=== PATIENT | female | born 1940 | race Caucasian/White ===

== ENCOUNTER 2017-09-30 08:53 | Outpatient (CLI) | payer MEDICARE, BC | END 2017-09-30 08:54 | disposition home or self-care (01) | LOC: BICMAMMO 08:53 | PROVIDERS: ATTEND Internal Medicine | DX: Z12.31 Encounter for screening mammogram for malignant neoplasm of breast (principal) | CPT/HCPCS: 77063; 77067 ==

== ENCOUNTER 2018-03-17 10:13 | Outpatient (CLI) | payer MEDICARE, BC ==
[2018-03-17] MEDS ORDERED: ISOVUE-370 76%-LOCM 1 ML ONE (10:50)
--- NOTE | 2018-03-17 13:23 | CT ---
CT CHEST WITH IV CONTRAST: History: Lung nodule. Follow. Comparison: Multiple previous exams back to 07-24-07. FINDINGS: Scattered calcified granulomata. The subpleural 0.6 cm noncalcified nodule at the right lateral lung base is stable compared to exams back to 07-24-07. No new nodules. No enlarged lymph nodes are apparent within the mediastinum. IMPRESSION: 10-year stability of the small right lower lobe nodule. No new abnormalities. POS: [facility]
== END 2018-03-17 10:14 | disposition home or self-care (01) ==
LOC: BICCT 10:13
PROVIDERS: ATTEND Internal Medicine Pulmonary Disease
DX: R91.1 Solitary pulmonary nodule (principal)
CPT/HCPCS: 71260; 82565

== ENCOUNTER 2018-07-28 05:16 | Observation (INO) | payer MEDICARE, BC ==
[2018-07-28 05:51] LABS: #Basophils 0.1 thou/uL (0.0-0.2); #Eosinphils 0.3 thou/uL (0.0-0.7); #Lymphocytes 1.9 thou/uL (1.20-3.40); #Monocytes 0.6 thou/uL (0.11-0.59); %Basophils 0.9 % (0.0-1.0); %Eosinophils 4.8 % (0.0-10.0); %Lymphocytes 33.3 % (21.0-51.0); %Monocytes 10.3 % (0.0-10.0); %Neutrophils 50.9 % (42.0-75.0); Hemoglobin 14.9 g/dL (12.0-16.0); Mean Corpuscular HGB CONC 33.2 g/dL (32.0-36.0); Mean Corpuscular Hemoglobin 29.7 pg (27.0-31.0); Mean Corpuscular Volume 89.5 fL (78.0-98.0); Mean Platelet Volume 8.4 fL (7.4-10.4); Platelet Count 198 thou/uL (130-400); Red Blood Cell (RBC) Count 5.01 mill/uL (4.20-5.40); White Blood Cell (WBC) Count 5.8 thou/uL (4.8-10.8)
[2018-07-28 06:22] LABS: ALT (SGPT) 23 U/L (8-55); AST (SGOT) 24 U/L (5-34); Albumin 3.9 g/dL (3.4-4.8); Alkaline Phosphatase 93 U/L (40-150); Anion Gap 11 mmol/L (10-20); BUN (Urea Nitrogen) 19 mg/dL (9.8-20.1); Bilirubin, Total 0.7 mg/dL (0.2-1.2); Calc. Creatinine Clearance 0 mL/min (70-130); Calcium 9.7 mg/dL (7.8-10.44); Carbon Dioxide 28 mmol/L (23-31); Chloride 104 mmol/L (98-107); Estimated GFR-MDRD 64; Globulin 3.3 g/dL (2.4-3.5); Glucose 207 mg/dL (83-110); Potassium 4.1 mmol/L (3.5-5.1); Protein, Total 7.2 g/dL (6.0-8.3); Sodium 139 mmol/L (136-145)
--- NOTE | 2018-07-28 08:00 | RAD ---
PORTABLE CHEST ONE VIEW: Date: 07-28-18 Time: 6:04 a.m. History: Chest pain FINDINGS: Comparison is made with exam of 01-16-17. The heart size is normal. The aorta is tortuous. The lungs are expanded without focal areas of consol idation, pneumothoraces, or pleural effusions. IMPRESSION: No radiographic evidence of acute cardiopulmonary process. POS: OFF
[2018-07-28 09:32] LABS: Troponin I Less than 0.010 ng/mL (< 0.028)
--- NOTE | 2018-07-28 17:48 | HP ---
REASON FOR ADMISSION: Chest pain. HISTORY OF PRESENTING ILLNESS: The patient woke up around 4:30 a.m. with complaint of retrosternal chest pain. This was 4/10 in intensity and lasted only for a few seconds. She checked her blood pressure, it was 199/104. She told her and brought her to the emergency room. Currently, she is chest pain- free. She is wanting to go home. There are no complaints of cough, expectoration, palpitations, PND, or orthopnea. She in fact saw Dr. Turner yesterday for varicose veins and did not have any chest pain or any untoward symptoms. Her last stress test was in 2014 per patient. No complaints of abdominal pain, nausea, or vomiting. Current medications: 1. Levemir 30 to 50 units twice daily. 2. Humalog 2 to 6 units before meals. 3. Levothyroxine 25 mcg p.o. daily. 4. Omeprazole 40 mg p.o. daily. 5. Trulicity 1.5 mg subcu once a week. 6. Quinapril with hydrochlorothiazide 20/25 mg p.o. daily. 7. Pramipexole 0.25 mg p.o. daily. ALLERGIES: ALLERGIC TO CODEINE, LYRICA, AND TRAMADOL. PAST MEDICAL AND SURGICAL HISTORY: History of diabetes mellitus type 2, hypertension, hypothyroidism, varicose veins, restless legs syndrome, hysterectomy, right breast lumpectomy x2, hammertoe removal on the right foot. PERSONAL HISTORY: Does not abuse alcohol or drugs. No current smoking, quit smoking 40 years ago and smoked for 20 years or so in her younger days. FAMILY HISTORY: Mother at the age of 82 years. She has had history of coronary artery disease and diabetes. Father of stroke at the age of 76 years. CODE STATUS: Full. Power of executive candidate developer is her . REVIEW OF SYSTEMS: CONSTITUTIONAL: Negative for weight loss or gain, ability to conduct usual activities. SKIN: Negative for rash, itching. EYES: Negative for double vision, pain. ENT/MOUTH: Negative for nose bleeding, neck stiffness, pain, tenderness. CARDIOVASCULAR: Negative for palpitations, dyspnea on exertion, orthopnea. RESPIRATORY: Negative for shortness of breath, wheezing, cough, hemoptysis, fever or night sweats. GASTROINTESTINAL: Negative for poor appetite, abdominal pain, heartburn, nausea , vomiting, constipation, or diarrhea. GENITOURINARY: Negative for urgency, frequency, dysuria, nocturia. MUSCULOSKELETAL: Negative for pain, swelling. NEUROLOGIC/PSYCHIATRIC: Negative for anxiety, depression. ALLERGY/IMMUNOLOGIC: Negative for skin rash, bleeding tendency. PHYSICAL EXAMINATION: GENERAL: The patient is a 78-year-old female, who is currently not in any acute distress. VITAL SIGNS: Blood pressure 200/90 on arrival, currently 146/80, pulse 76 per minute, respiratory rate 18 per minute, temperature 97.6 degrees Fahrenheit, saturating 95% on room air. NECK: Supple. No elevated JVD. HEENT: Eyes; extraocular muscles intact. Pupils reacting to light. Oral cavity, mucous membranes are moist. No exudates or congestion, CARDIOVASCULAR SYSTEM: S1 and S2 heard. Regular rhythm. RESPIRATORY SYSTEM: Air entry 2+ bilateral. No rales or rhonchi. ABDOMEN: Soft. Bowel sounds heard. No tenderness, rigidity, or guarding. EXTREMITIES: No peripheral edema or calf tenderness. VASCULAR SYSTEM: Peripheral pulses 1+ bilateral. No ischemic ulcerations or gangrene. CENTRAL NERVOUS SYSTEM: No gross focal deficits noted. The patient is alert, awake, and oriented well. PSYCHIATRIC SYSTEM: The patient's mood is euthymic. No hallucinations or delusions. LABORATORY DATA: EKG done shows normal sinus rhythm at 74 beats per minute. Troponin x2 is negative. Albumin is 3.9, BUN 19, creatinine 0.8. Chest x-ray done shows no acute cardiopulmonary abnormality. Electrolytes are stable. White count of 5, H and H 14 and 44, platelet count 198 with 50% neutrophils, MCV is 89. Liver enzymes are within normal limits. CLINICAL IMPRESSION AND PLAN: The patient will be shortly discharged home. She has had followup with Dr. Turner yesterday and has upcoming appointment next week. I have discussed her findings with Dr. Turner, and if the patient gets symptomatic again , she will have outpatient stress test at Dr. Turner office. She has workup lined for her varicose veins. Her hypertension is stable at present. She needs to continue her home medications as before. She is not wanting a stress test at present and wants to go home. The patient has been advised to come to the nearest emergency room if she were to develop chest pain again. She is also advised to check blood pressure and pulse twice daily and record for one week and show to Dr. Turner for changes in her medications if needed. She is otherwise hemodynamically stable and will be shortly discharged from the ER. Please note, this is a same day admit/discharge under observation status. Job ID: [id number] MTDD
--- NOTE | 2018-08-22 16:37 | EKG ---
Test Reason : Blood Pressure : / mmHG Vent. Rate : 074 BPM Atrial Rate : 074 BPM P-R Int : 164 ms QRS Dur : 080 ms QT Int : 388 ms P-R-T Axes : 014 004 031 degrees QTc Int : 430 ms Normal sinus rhythm Normal ECG Confirmed by SHARON KAUFMAN M.D. ([id number]), magazine editor ORLIN STALEY ([id number]) on 08/22/2018 4:36:29 PM Referred By: Confirmed By:SHARON KAUFMAN M.D.
== END 2018-07-28 11:27 | disposition home or self-care (01) ==
LOC: ERS 05:16 → ERHOLD 07:10
PROVIDERS: ADMIT Internal Medicine; ATTEND Internal Medicine
DX: R07.2 Precordial pain (principal); E11.9 Type 2 diabetes mellitus without complications; E03.9 Hypothyroidism, unspecified; G25.81 Restless legs syndrome; I83.90 Asymptomatic varicose veins of unspecified lower extremity; Z87.891 Personal history of nicotine dependence; Z79.4 Long term (current) use of insulin; Z79.899 Other long term (current) drug therapy; Z88.5 Allergy status to narcotic agent
CPT/HCPCS: 36415; 36416; 71045; 80053; 84484; 85025; 93005

== ENCOUNTER 2019-04-28 10:24 | Outpatient (CLI) | payer MEDICARE, BC ==
--- NOTE | 2019-04-28 11:26 | MMO ---
Bilateral MAMMO Bilat Screen [facility]. CLINICAL HISTORY: Patient is 78 years old and is seen for screening. The patient has no family history of breast cancer. The patient has no personal history of cancer. The patient has a history of Ultrasound Guided Core Biopsy in March,, right Excisional Biopsy in March, - benign and right Excisional Biopsy in 1995 - benign. VIEWS: The views performed were: bilateral craniocaudal with tomosynthesis; bilateral mediolateral oblique with tomosynthesis; and left craniocaudal. FILMS COMPARED: The present examination has been compared to prior imaging studies performed at [facility] on 03/04/2013, 06/02/2015, 06/20/2016 and 09/30/2017. This study has been interpreted with the assistance of computer-aided detection. MAMMOGRAM FINDINGS: There are scattered fibroglandular densities. There are no suspicious masses, calcifications or areas of architectural distortion. There are benign appearing calcifications in both breasts. Stable post surgical change in the right breast. There are no suspicious masses, suspicious calcifications, or new areas of architectural distortion. IMPRESSION: THERE IS NO MAMMOGRAPHIC EVIDENCE OF MALIGNANCY. A ROUTINE FOLLOW-UP MAMMOGRAM IN 1 YEAR IS RECOMMENDED. THE RESULTS OF THIS EXAM WERE SENT TO THE PATIENT. ACR BI-RADS Category 2 - Benign finding MAMMOGRAPHY NOTE: 1. A negative mammogram report should not delay a biopsy if a dominant of clinically suspicious mass is present. 2. Approximately 10% to 15% of breast cancers are not detected by mammography. 3. Adenosis and dense breasts may obscure an underlying neoplasm. Reported by: STEPHANI CADENA MD Electonically Signed: [id number]
== END 2019-04-28 10:25 | disposition home or self-care (01) ==
LOC: BICMAMMO 10:24
PROVIDERS: ATTEND Internal Medicine
DX: Z12.31 Encounter for screening mammogram for malignant neoplasm of breast (principal); Z91.89 Other specified personal risk factors, not elsewhere classified
CPT/HCPCS: 77063; 77067

== ENCOUNTER 2019-06-30 07:49 | Outpatient (CLI) | payer MEDICARE, BC ==
--- NOTE | 2019-06-30 08:30 | BD ---
EXAM: Bone densitometry using DEXA HISTORY: 78 yo female. Screening for postmenopausal osteoporosis FINDINGS: L1--bone mineral density 0.828 g/sq cm; T score -1.5 ; Z score 0.8 L2--bone mineral density 0.886 g/sq cm; T score -1.3 ; Z score 1.2 L3--bone mineral density 0.878 g/sq cm; T score -1.9 ; Z score 0.7 L4--bone mineral density 0.892 g/sq cm; T score -1.5 ; Z score 1.1 Total L1-L4--bone mineral density 0.873 g/sq cm; T score -1.6 ; Z score 0.9 Left femoral neck--bone mineral density0.656; T score -1.7 ; Z score 0.4 Total proximal left femur--bone mineral density 0.910; T score -0.3 ; Z score 1.6 The 10 year fracture risk for a major osteoporotic fracture is 12% and for a hip fracture is 2.6%. IMPRESSION: Osteopenia
== END 2019-06-30 07:50 | disposition home or self-care (01) ==
LOC: BICMAMMO 07:49
PROVIDERS: ATTEND Internal Medicine
DX: Z13.820 Encounter for screening for osteoporosis (principal); Z78.0 Asymptomatic menopausal state; M85.80 Other specified disorders of bone density and structure, unspecified site
CPT/HCPCS: 77080

== ENCOUNTER 2020-03-27 12:00 | Emergency (ER) | payer MEDICARE, BC ==
[2020-03-27 13:15] LABS: #Eosinphils 0.2 thou/uL (0.0-0.7); #Lymphocytes 1.7 thou/uL (1.20-3.40); #Monocytes 0.4 thou/uL (0.11-0.59); #Neutrophils 3.3 thou/uL (1.40-6.50); %Basophils 0.6 % (0.0-1.0); %Eosinophils 2.8 % (0.0-10.0); %Lymphocytes 29.7 % (21.0-51.0); %Monocytes 7.8 % (0.0-10.0); Hemoglobin 15.4 g/dL (12.0-16.0); Mean Corpuscular HGB CONC 34.4 g/dL (32.0-36.0); Mean Corpuscular Volume 87.2 fL (78.0-98.0); Mean Platelet Volume 8.3 fL (7.4-10.4); Platelet Count 206 thou/uL (130-400); RBC Distribution Width 12.6 % (11.5-14.5); Red Blood Cell (RBC) Count 5.13 mill/uL (4.20-5.40); White Blood Cell (WBC) Count 5.7 thou/uL (4.8-10.8)
--- NOTE | 2020-03-27 13:20 | CT ---
CT HEAD WITHOUT CONTRAST: Date: 03/27/2020 INDICATION: Headache. FINDINGS: Ventricles have normal size and position. There is no evidence of intracranial mass or hemorrhage. No evidence of infarct or edema. Mild mucosal edema in the ethmoid air cells on the right. Paranasal sinuses otherwise appear clear an d well aerated. The mastoids are clear. IMPRESSION: No acute findings. POS: OFF
[2020-03-27 13:34] LABS: ALT (SGPT) 17 U/L (8-55); AST (SGOT) 17 U/L (5-34); Albumin 4.2 g/dL (3.4-4.8); Alkaline Phosphatase 55 U/L (40-110); Anion Gap 12 mmol/L (10-20); BUN (Urea Nitrogen) 17 mg/dL (9.8-20.1); Bilirubin, Total 0.7 mg/dL (0.2-1.2); CRP (Inflammatory) Less than 0.50 mg/dL (= or < 0.5); Calc. Creatinine Clearance 0 mL/min (70-130); Calcium 9.6 mg/dL (7.8-10.44); Carbon Dioxide 30 mmol/L (23-31); Chloride 103 mmol/L (98-107); Estimated GFR-MDRD 51; Globulin 2.9 g/dL (2.4-3.5); Glucose 129 mg/dL (83-110); Potassium 3.9 mmol/L (3.5-5.1); Protein, Total 7.1 g/dL (6.0-8.3); Sodium 141 mmol/L (136-145)
[2020-03-27] MEDS ORDERED: carBAMazepine 200 MG TAB PO SCH (13:45)
--- NOTE | 2020-03-27 13:45 | CT ---
CT Facial Bones WO Con History: Left-sided face pain Comparison: None. Findings: The mandible is intact. Normal location of the temporomandibular joints. The medial orbital emanuel, lateral orbital emanuel, orbital floors and orbital roofs are intact. Nasal bones are intact. Mild mucosal thickening of the anterior and posterior ethmoids. Mild mucosal thickening in the inferior maxillary sinuses. Sphenoid sinuses are intact and clear along with the mastoids. No left-sided facial mass. The globes are intact. No retrobulbar hematoma. No large periapical erosions of the mandible normal axilla. Impression: No acute abnormality of the face. No fracture. Mild ethmoid or maxillary sinusitis.
--- NOTE | 2020-04-01 13:26 | EKG ---
Test Reason : Blood Pressure : / mmHG Vent. Rate : 067 BPM Atrial Rate : 067 BPM P-R Int : 152 ms QRS Dur : 078 ms QT Int : 396 ms P-R-T Axes : 007 009 024 degrees QTc Int : 418 ms Normal sinus rhythm Normal ECG Confirmed by DC WALL DO ([id number]), slot editor RAYO ALVARENGA ([id number]) on 04/01/2020 1:25:51 PM Referred By: Confirmed By:DC WALL DO
== END 2020-03-27 14:05 | disposition home or self-care (01) ==
LOC: ERS 12:00
DX: G50.0 Trigeminal neuralgia (principal); E11.9 Type 2 diabetes mellitus without complications; I10 Essential (primary) hypertension; E03.9 Hypothyroidism, unspecified; K21.9 Gastro-esophageal reflux disease without esophagitis; Z79.4 Long term (current) use of insulin; Z79.899 Other long term (current) drug therapy
CPT/HCPCS: 36415; 70450; 70486; 80053; 85025; 85652; 86140; 93005

== ENCOUNTER 2020-05-23 12:04 | Outpatient (CLI) | payer MEDICARE, BC ==
--- NOTE | 2020-05-23 13:16 | MMO ---
Bilateral MAMMO Bilat Screen [facility]. CLINICAL HISTORY: Patient is 79 years old and is seen for screening. The patient has no family history of breast cancer. The patient has no personal history of cancer. The patient has a history of Ultrasound Guided Core Biopsy in March,, right Excisional Biopsy in March, - benign and right Excisional Biopsy in 1995 - benign. VIEWS: The views performed were: bilateral craniocaudal with tomosynthesis and bilateral mediolateral oblique with tomosynthesis. FILMS COMPARED: The present examination has been compared to prior imaging studies performed at [facility] on 06/02/2015, 06/20/2016, 09/30/2017 and 04/28/2019. This study has been interpreted with the assistance of computer-aided detection. MAMMOGRAM FINDINGS: There are scattered fibroglandular densities. Finding 1: There are stable benign appearing calcifications seen in both breasts. There are also vascular calcifications. Finding 2: There are stable post operative changes seen in the right breast. There are no suspicious masses, suspicious calcifications, or new areas of architectural distortion. IMPRESSION: THERE IS NO MAMMOGRAPHIC EVIDENCE OF MALIGNANCY. A ROUTINE FOLLOW-UP MAMMOGRAM IN 1 YEAR IS RECOMMENDED. THE RESULTS OF THIS EXAM WERE SENT TO THE PATIENT. ACR BI-RADS Category 2 - Benign finding MAMMOGRAPHY NOTE: 1. A negative mammogram report should not delay a biopsy if a dominant of clinically suspicious mass is present. 2. Approximately 10% to 15% of breast cancers are not detected by mammography. 3. Adenosis and dense breasts may obscure an underlying neoplasm. Reported by: MARA VALDERRAMA MD Electonically Signed: [id number]
== END 2020-05-23 12:05 | disposition home or self-care (01) ==
LOC: BICMAMMO 12:04
PROVIDERS: ATTEND Internal Medicine
DX: Z12.31 Encounter for screening mammogram for malignant neoplasm of breast (principal); Z91.89 Other specified personal risk factors, not elsewhere classified
CPT/HCPCS: 77063; 77067

== ENCOUNTER 2020-10-13 13:33 | Emergency (ER) | payer MEDICARE, BC ==
[2020-10-13] MEDS ORDERED: Morphine 4 MG/ML VIAL ONE (13:57)
[2020-10-13] MEDS ORDERED: traMADol HCl 50 MG TAB ONE (15:30)
[2020-10-13] MEDS ORDERED: Ondansetron ODT 4 MG TAB ONE (15:30)
== END 2020-10-13 15:50 | disposition home or self-care (01) ==
LOC: ERS 13:33
DX: S42.202A Unspecified fracture of upper end of left humerus, initial encounter for closed fracture (principal); E11.9 Type 2 diabetes mellitus without complications; I10 Essential (primary) hypertension; E03.9 Hypothyroidism, unspecified; K21.9 Gastro-esophageal reflux disease without esophagitis; Z79.4 Long term (current) use of insulin; Z79.899 Other long term (current) drug therapy; W18.30XA Fall on same level, unspecified, initial encounter
CPT/HCPCS: 96374; J2270; Q0162

== ENCOUNTER 2021-10-11 09:38 | Outpatient (CLI) | payer MEDICARE, BC | END 2021-10-11 09:39 | disposition home or self-care (01) | LOC: BICMAMMO 09:38 | PROVIDERS: ATTEND Internal Medicine | DX: Z12.31 Encounter for screening mammogram for malignant neoplasm of breast (principal); Z13.820 Encounter for screening for osteoporosis; Z78.0 Asymptomatic menopausal state; M85.89 Other specified disorders of bone density and structure, multiple sites; Z91.89 Other specified personal risk factors, not elsewhere classified | CPT/HCPCS: 77063; 77067; 77080 ==

== ENCOUNTER 2023-01-30 09:19 | Emergency (ER) | payer MEDICARE, BC ==
[2023-01-30] MEDS ORDERED: Acetaminophen 500 MG TAB ONE ×2 (09:54→09:57)
[2023-01-30 10:22] LABS: #Basophils 0.1 thou/uL (0.0-0.2); #Eosinphils 0.4 thou/uL (0.0-0.7); #Monocytes 0.8 thou/uL (0.11-0.59); #Neutrophils 5.7 thou/uL (1.40-6.50); %Basophils 0.8 % (0.0-1.0); %Eosinophils 4.4 % (0.0-10.0); %Lymphocytes 20.8 % (21.0-51.0); %Monocytes 8.6 % (0.0-10.0); %Neutrophils 64.9 % (42.0-75.0); Hematocrit 43.6 % (36.0-47.0); Hemoglobin 14.3 g/dL (12.0-16.0); Mean Corpuscular HGB CONC 32.8 g/dL (32.0-36.0); Mean Corpuscular Hemoglobin 28.1 pg (27.0-31.0); Mean Corpuscular Volume 85.8 fl (78.0-98.0); Mean Platelet Volume 10.3 fL (7.4-10.4); Platelet Count 258 10x3/uL (130-400); RBC Distribution Width 13.1 % (11.5-14.5); Red Blood Cell (RBC) Count 5.08 mill/uL (4.20-5.40); White Blood Cell (WBC) Count 8.8 10x3/uL (4.8-10.8)
[2023-01-30 10:23] LABS: Bilirubin Negative (Negative); Blood, Urine 3+ (Negative); CAUTI Indications for Culture Dysuria,urgency,freq; Clarity Extra Turbid (Clear); Glucose, Urine (Dipstick) 100 mg/dL (Negative); Ketone, Urine Negative (Negative); Leukocyte 500 Leu/uL (Negative); Nitrite Negative (Negative); Protein, Urine (Dipstick) 200 mg/dL (Neg-Trace); RBC/HPF Greater than 50 HPF (0-3); Specific Gravity, Urine 1.027 (1.002-1.036); Urobilinogen Normal mg/dL (Less than 2); pH, Urine 5.5 (5.0-9.0)
[2023-01-30 10:29] LABS: Bacteria/HPF 3+ HPF (None Seen)
[2023-01-30 10:30] LABS: Urine Culture Reflex Yes Yes
[2023-01-30 10:43] LABS: ALT (SGPT) 11 U/L (8-55); AST (SGOT) 13 U/L (5-34); Albumin 4.3 g/dL (3.4-4.8); Alkaline Phosphatase 68 U/L (40-110); Anion Gap 16 mmol/L (10-20); BUN (Urea Nitrogen) 20 mg/dL (9.8-20.1); Bilirubin, Total 0.6 mg/dL (0.2-1.2); Calc. Creatinine Clearance 0 mL/min (70-130); Calcium 10.2 mg/dL (7.8-10.44); Carbon Dioxide 27 mmol/L (23-31); Chloride 99 mmol/L (98-107); Estimated GFR 43; Globulin 3.1 g/dL (2.4-3.5); Glucose 189 mg/dL (83-110); Lipase 24 U/L (8-78); Potassium 4.1 mmol/L (3.5-5.1); Protein, Total 7.4 g/dL (5.8-8.1); Sodium 138 mmol/L (136-145)
== END 2023-01-30 11:23 | disposition home or self-care (01) ==
LOC: ERS 09:19
DX: N39.0 Urinary tract infection, site not specified (principal); E11.9 Type 2 diabetes mellitus without complications; I10 Essential (primary) hypertension; E03.9 Hypothyroidism, unspecified; K21.9 Gastro-esophageal reflux disease without esophagitis
CPT/HCPCS: 36415; 80053; 81001; 83690; 85025; 87077; 87086; 87186; 99283

== ENCOUNTER 2023-02-26 15:21 | Inpatient (IN) | payer MEDICARE, BC ==
[~2023-02-26 15:21] MED LIST: Iopamidol-370 76% 500 ML MDV (1 ML CHARGE) ONE
[2023-02-26] MEDS ORDERED: fentaNYL 50 mcg/mL 1 mL Vial ONE (16:40)
[2023-02-26 16:42] LABS: Bilirubin Negative (Negative); Blood, Urine 3+ (Negative); CAUTI Indications for Culture Dysuria,urgency,freq; Glucose, Urine (Dipstick) 70 mg/dL (Negative); Ketone, Urine Negative (Negative); Leukocyte 500 Leu/uL (Negative); Nitrite Negative (Negative); Protein, Urine (Dipstick) 300 mg/dL (Neg-Trace); RBC/HPF Greater than 50 HPF (0-3); Specific Gravity, Urine 1.012 (1.002-1.036); Urobilinogen Normal mg/dL (Less than 2); pH, Urine 6.5 (5.0-9.0)
[2023-02-26 16:59] LABS: Bacteria/HPF 1+ HPF (None Seen)
[2023-02-26 17:00] LABS: Clarity Cloudy (Clear); Squamous Epithelial 0-3 HPF (0-3); WBC/HPF 21-50 HPF (0-3); Yeast-Budding None Seen HPF (None Seen)
[2023-02-26 17:01] LABS: #Basophils 0.1 thou/uL (0.0-0.2); #Eosinphils 0.6 thou/uL (0.0-0.7); #Monocytes 1.2 thou/uL (0.11-0.59); #Neutrophils 11.3 thou/uL (1.40-6.50); %Basophils 0.5 % (0.0-1.0); %Eosinophils 4.2 % (0.0-10.0); %Lymphocytes 11.7 % (21.0-51.0); %Monocytes 7.9 % (0.0-10.0); %Neutrophils 75.3 % (42.0-75.0); Hemoglobin 13.5 g/dL (12.0-16.0); Mean Corpuscular HGB CONC 33.8 g/dL (32.0-36.0); Mean Corpuscular Hemoglobin 28.6 pg (27.0-31.0); Mean Corpuscular Volume 84.7 fl (78.0-98.0); Mean Platelet Volume 10.5 fL (7.4-10.4); Platelet Count 294 10x3/uL (130-400); RBC Distribution Width 13.2 % (11.5-14.5); Red Blood Cell (RBC) Count 4.72 mill/uL (4.20-5.40)
[2023-02-26 17:03] LABS: Urine Culture Reflex Yes Yes
[2023-02-26 17:24] LABS: ALT (SGPT) 12 U/L (8-55); AST (SGOT) 11 U/L (5-34); Albumin 4.1 g/dL (3.4-4.8); Alkaline Phosphatase 65 U/L (40-110); Anion Gap 14 mmol/L (10-20); BUN (Urea Nitrogen) 29 mg/dL (9.8-20.1); Bilirubin, Total 0.5 mg/dL (0.2-1.2); Calc. Creatinine Clearance 0 mL/min (70-130); Calcium 10.8 mg/dL (7.8-10.44); Carbon Dioxide 27 mmol/L (23-31); Chloride 98 mmol/L (98-107); Estimated GFR 39; Globulin 3.6 g/dL (2.4-3.5); Glucose 152 mg/dL (83-110); Potassium 3.9 mmol/L (3.5-5.1); Protein, Total 7.7 g/dL (5.8-8.1); Sodium 135 mmol/L (136-145)
[2023-02-26] MEDS ORDERED: cefTRIAXone (ROCEPHIN) 1 GM VIAL ONE (18:54)
[2023-02-26] MEDS ORDERED: VANCOMYCIN 2 GRAM/500 ML BAG 2 GM in Premix Bag 1 BAG IVPB SCH (19:00)
[2023-02-26] MEDS ORDERED: Ondansetron PF 4 MG/2 ML Vial IVP PRN (20:42)
[2023-02-26] MEDS ORDERED: Ondansetron ODT 4 MG TAB PO PRN (20:42)
[2023-02-26] MEDS ORDERED: Glucagon 1 MG/ML KIT IM PRN (20:45)
[2023-02-26] MEDS ORDERED: Dextrose 5% in Water 1,000 ML IV PRN (20:45)
[2023-02-26] MEDS ORDERED: Dextrose 50% Abboject 50 ML SYRINGE SLOW IVP PRN (20:45)
[2023-02-26] MEDS ORDERED: HumaLOG 300 UNITS/3 ML VIAL SC PRN ×2 (20:45)
[2023-02-26 20:55] VITALS: BMI 33.0
[2023-02-26] MEDS ORDERED: Heparin 5,000 UNITS/ML VIAL SC SCH (21:00)
[2023-02-26] MEDS ORDERED: Famotidine 20 MG TAB ONE (21:05)
[2023-02-26] MEDS: Sodium Chloride 0.9% 1,000 ML IV SCH (21:11)
[2023-02-26] MEDS: Famotidine 20 MG TAB PO SCH (21:11)
[2023-02-26] MEDS ORDERED: Acetaminophen 325 MG TAB ONE (21:13)
[2023-02-26] MEDS: Acetaminophen 325 MG TAB PO PRN (21:14)
[2023-02-26] MEDS ORDERED: LevoFLOXacin 750 mg/D5W 750 MG in Premix Bag 1 BAG IVPB SCH (22:00)
[2023-02-27 06:43] LABS: #Basophils 0.1 thou/uL (0.0-0.2); #Eosinphils 0.6 thou/uL (0.0-0.7); #Monocytes 0.9 thou/uL (0.11-0.59); %Basophils 0.6 % (0.0-1.0); %Eosinophils 5.5 % (0.0-10.0); %Lymphocytes 14.9 % (21.0-51.0); %Monocytes 8.9 % (0.0-10.0); %Neutrophils 69.6 % (42.0-75.0); Hematocrit 34.7 % (36.0-47.0); Hemoglobin 11.5 g/dL (12.0-16.0); Mean Corpuscular HGB CONC 33.1 g/dL (32.0-36.0); Mean Corpuscular Hemoglobin 28.3 pg (27.0-31.0); Mean Corpuscular Volume 85.5 fl (78.0-98.0); Mean Platelet Volume 10.8 fL (7.4-10.4); Platelet Count 234 10x3/uL (130-400); RBC Distribution Width 13.5 % (11.5-14.5); Red Blood Cell (RBC) Count 4.06 mill/uL (4.20-5.40)
[2023-02-27 07:00] LABS: Anion Gap 11 mmol/L (10-20); BUN (Urea Nitrogen) 24 mg/dL (9.8-20.1); Calc. Creatinine Clearance 49 mL/min (70-130); Calcium 9.5 mg/dL (7.8-10.44); Carbon Dioxide 25 mmol/L (23-31); Chloride 103 mmol/L (98-107); Estimated GFR 48; Glucose 192 mg/dL (83-110); Potassium 4.1 mmol/L (3.5-5.1); Sodium 135 mmol/L (136-145)
[2023-02-27] MEDS: Acetaminophen 325 MG TAB PO PRN (09:39)
[2023-02-27] MEDS: Sodium Chloride 0.9% 1,000 ML IV SCH ×2 (10:08→14:46)
[2023-02-27] MEDS ORDERED: Polyethylene Glycol 3350 17 GM Packet PO PRN (12:38)
[2023-02-27] MEDS ORDERED: Insulin Glargine 30 UNITS/0.3 ML VIAL SC SCH (12:45)
[2023-02-27] MEDS ORDERED: Phenazopyridine HCl 100 MG TAB PO SCH (14:00)
[2023-02-27] MEDS: Saccharomyces boulardii 250 MG CAP PO SCH (14:41)
[2023-02-27] MEDS: CO Q-10 CAPSULE 100 MG PO SCH (17:36)
[2023-02-27] MEDS: cefTRIAXone\\ROCEPHIN 1 GM in Sodium Chloride 0.9% 100 ML IVPB SCH (17:36)
[2023-02-27] MEDS: Phenazopyridine HCl 100 MG TAB PO SCH (17:36)
[2023-02-27] MEDS: HumaLOG 300 UNITS/3 ML VIAL SC PRN (17:37)
[2023-02-27] MEDS: Pramipexole Di-HCl 0.25 MG TAB PO SCH (20:15)
[2023-02-27] MEDS: Acetaminophen 500 MG TAB PO SCH (20:16)
[2023-02-27] MEDS: Insulin Glargine 30 UNITS/0.3 ML VIAL SC SCH (20:16)
[2023-02-27] MEDS: Famotidine 20 MG TAB PO SCH (20:16)
[2023-02-27] MEDS ORDERED: Melatonin 3 MG TAB PO SCH (23:15)
[2023-02-28] MEDS: Levothyroxine Sodium 25 MCG TAB PO SCH (05:35)
[2023-02-28] MEDS: HumaLOG 300 UNITS/3 ML VIAL SC PRN ×2 (05:43→17:26)
[2023-02-28 06:38] LABS: #Basophils 0.1 thou/uL (0.0-0.2); #Eosinphils 0.7 thou/uL (0.0-0.7); #Monocytes 0.9 thou/uL (0.11-0.59); #Neutrophils 7.1 thou/uL (1.40-6.50); %Basophils 0.7 % (0.0-1.0); %Eosinophils 6.3 % (0.0-10.0); %Lymphocytes 18.4 % (21.0-51.0); %Monocytes 7.9 % (0.0-10.0); %Neutrophils 66.3 % (42.0-75.0); Hematocrit 36.2 % (36.0-47.0); Mean Corpuscular HGB CONC 33.1 g/dL (32.0-36.0); Mean Corpuscular Hemoglobin 28.4 pg (27.0-31.0); Mean Corpuscular Volume 85.8 fl (78.0-98.0); Mean Platelet Volume 10.6 fL (7.4-10.4); Platelet Count 247 10x3/uL (130-400); RBC Distribution Width 13.2 % (11.5-14.5); Red Blood Cell (RBC) Count 4.22 mill/uL (4.20-5.40); White Blood Cell (WBC) Count 10.8 10x3/uL (4.8-10.8)
[2023-02-28 07:04] LABS: Anion Gap 12 mmol/L (10-20); BUN (Urea Nitrogen) 20 mg/dL (9.8-20.1); Calc. Creatinine Clearance 52 mL/min (70-130); Calcium 9.7 mg/dL (7.8-10.44); Carbon Dioxide 24 mmol/L (23-31); Chloride 104 mmol/L (98-107); Estimated GFR 52; Glucose 221 mg/dL (83-110); Sodium 136 mmol/L (136-145)
[2023-02-28] MEDS: Phenazopyridine HCl 100 MG TAB PO SCH ×3 (08:40→17:26)
[2023-02-28] MEDS: Rosuvastatin 20 MG TAB PO SCH (08:40)
[2023-02-28] MEDS: Cholecalciferol 1,000 UNITS (25 MCG) TAB PO SCH (08:41)
[2023-02-28] MEDS: Acetaminophen 500 MG TAB PO SCH ×2 (08:41→20:20)
[2023-02-28] MEDS: Insulin Glargine 30 UNITS/0.3 ML VIAL SC SCH ×2 (08:42→20:22)
[2023-02-28] MEDS: LevoFLOXacin 500 mg/D5W 500 MG in Premix Bag 1 BAG IVPB SCH (10:42)
[2023-02-28] MEDS ORDERED: Loperamide HCl 2 MG CAP PO PRN (11:26)
[2023-02-28] MEDS: Saccharomyces boulardii 250 MG CAP PO SCH (13:15)
[2023-02-28] MEDS: cefTRIAXone\\ROCEPHIN 1 GM in Sodium Chloride 0.9% 100 ML IVPB SCH (17:25)
[2023-02-28] MEDS: Acetaminophen 325 MG TAB PO PRN (17:31)
[2023-02-28] MEDS ORDERED: traZODone HCl 50 MG TAB PO SCH (19:45)
[2023-02-28] MEDS: Famotidine 20 MG TAB PO SCH (20:21)
[2023-02-28] MEDS: Pramipexole Di-HCl 0.25 MG TAB PO SCH (20:23)
[2023-02-28] MEDS: Melatonin 3 MG TAB PO PRN (20:24)
[2023-02-28] MEDS ORDERED: LevoFLOXacin 500 mg/D5W 500 MG in Premix Bag 1 BAG IVPB SCH (22:00)
[2023-03-01] MEDS: Levothyroxine Sodium 25 MCG TAB PO SCH (06:02)
[2023-03-01 07:43] LABS: #Basophils 0.1 thou/uL (0.0-0.2); #Eosinphils 0.7 thou/uL (0.0-0.7); #Monocytes 0.8 thou/uL (0.11-0.59); #Neutrophils 6.7 thou/uL (1.40-6.50); %Basophils 0.6 % (0.0-1.0); %Lymphocytes 14.2 % (21.0-51.0); %Monocytes 8.2 % (0.0-10.0); %Neutrophils 69.1 % (42.0-75.0); Hematocrit 35.8 % (36.0-47.0); Mean Corpuscular HGB CONC 33.5 g/dL (32.0-36.0); Mean Corpuscular Hemoglobin 28.8 pg (27.0-31.0); Mean Corpuscular Volume 86.1 fl (78.0-98.0); Mean Platelet Volume 10.5 fL (7.4-10.4); Platelet Count 227 10x3/uL (130-400); RBC Distribution Width 13.4 % (11.5-14.5); Red Blood Cell (RBC) Count 4.16 mill/uL (4.20-5.40); White Blood Cell (WBC) Count 9.7 10x3/uL (4.8-10.8)
[2023-03-01 08:09] LABS: Anion Gap 11 mmol/L (10-20); BUN (Urea Nitrogen) 16 mg/dL (9.8-20.1); Calc. Creatinine Clearance 55 mL/min (70-130); Calcium 9.6 mg/dL (7.8-10.44); Carbon Dioxide 25 mmol/L (23-31); Chloride 103 mmol/L (98-107); Estimated GFR 56; Glucose 183 mg/dL (83-110); Potassium 3.8 mmol/L (3.5-5.1); Sodium 135 mmol/L (136-145)
[2023-03-01] MEDS: Acetaminophen 500 MG TAB PO SCH ×2 (08:28→20:23)
[2023-03-01] MEDS: Cholecalciferol 1,000 UNITS (25 MCG) TAB PO SCH (08:30)
[2023-03-01] MEDS: Phenazopyridine HCl 100 MG TAB PO SCH ×3 (08:30→17:40)
[2023-03-01] MEDS: Rosuvastatin 20 MG TAB PO SCH (08:30)
[2023-03-01] MEDS: Insulin Glargine 30 UNITS/0.3 ML VIAL SC SCH ×2 (08:30→20:26)
[2023-03-01] MEDS: LevoFLOXacin 500 mg/D5W 500 MG in Premix Bag 1 BAG IVPB SCH (08:31)
[2023-03-01] MEDS: Saccharomyces boulardii 250 MG CAP PO SCH (14:31)
[2023-03-01] MEDS: cefTRIAXone\\ROCEPHIN 1 GM in Sodium Chloride 0.9% 100 ML IVPB SCH (17:38)
[2023-03-01] MEDS: CO Q-10 CAPSULE 100 MG PO SCH (17:40)
[2023-03-01] MEDS ORDERED: traZODone HCl 50 MG TAB PO SCH (20:00)
[2023-03-01] MEDS: Famotidine 20 MG TAB PO SCH (20:25)
[2023-03-01] MEDS: Pramipexole Di-HCl 0.25 MG TAB PO SCH (20:25)
[2023-03-01] MEDS: Melatonin 3 MG TAB PO PRN (20:25)
[2023-03-02] MEDS: Levothyroxine Sodium 25 MCG TAB PO SCH (05:43)
[2023-03-02] MEDS: LevoFLOXacin 500 mg/D5W 500 MG in Premix Bag 1 BAG IVPB SCH (08:02)
[2023-03-02] MEDS: Acetaminophen 500 MG TAB PO SCH (08:04)
[2023-03-02] MEDS: Rosuvastatin 20 MG TAB PO SCH (08:04)
[2023-03-02] MEDS: Cholecalciferol 1,000 UNITS (25 MCG) TAB PO SCH (08:04)
[2023-03-02] MEDS: Insulin Glargine 30 UNITS/0.3 ML VIAL SC SCH (08:06)
[2023-03-02 12:37] VITALS: BP 138/75; TEMP 98.3
== END 2023-03-02 12:42 | disposition home or self-care (01) | DRG 872 ==
LOC: ERS 15:21 → ERHOLD 19:31 → T4-A 22:50 → OBSVTOIN 02-27 12:40
PROVIDERS: ADMIT Student in an Organized Health Care Education/Training Program; ATTEND Internal Medicine
DX: A41.9 Sepsis, unspecified organism (principal); N17.9 Acute kidney failure, unspecified; N30.00 Acute cystitis without hematuria; E03.9 Hypothyroidism, unspecified; G25.81 Restless legs syndrome; E11.22 Type 2 diabetes mellitus with diabetic chronic kidney disease; N18.31 Chronic kidney disease, stage 3a; N32.89 Other specified disorders of bladder; K21.9 Gastro-esophageal reflux disease without esophagitis; I12.9 Hypertensive chronic kidney disease with stage 1 through stage 4 chronic kidney disease, or unspecified chronic kidney disease; Z90.710 Acquired absence of both cervix and uterus; Z79.899 Other long term (current) drug therapy; Z88.5 Allergy status to narcotic agent; Z88.8 Allergy status to other drugs, medicaments and biological substances; Z79.4 Long term (current) use of insulin; Z82.49 Family history of ischemic heart disease and other diseases of the circulatory system; Z83.3 Family history of diabetes mellitus; Z87.891 Personal history of nicotine dependence
CPT/HCPCS: 36415; 36416; 74177; 80048; 80053; 81001; 83605; 85025; 87086; 96365; 96366; 96367; 96372; 96375; G0378; J0696; J1644; J1815; J1956; J3010; J3370; J3490; J7050; Q9967

== ENCOUNTER 2023-05-07 08:53 | Outpatient (CLI) | payer MEDICARE, BC | END 2023-05-07 08:54 | disposition home or self-care (01) | LOC: CT 08:53 | PROVIDERS: ATTEND Internal Medicine Hematology & Oncology | DX: C67.2 Malignant neoplasm of lateral wall of bladder (principal) | CPT/HCPCS: 71260; 78306; 82565 ==

== ENCOUNTER 2023-05-07 13:33 | Emergency (ER) | payer MEDICARE, BC ==
[2023-05-07] MEDS ORDERED: Lidocaine 1% PF 5 ML VIAL ONE (14:31)
[2023-05-07 14:52] LABS: #Basophils 0.1 thou/uL (0.0-0.2); #Eosinphils 0.5 thou/uL (0.0-0.7); #Monocytes 1.1 thou/uL (0.11-0.59); #Neutrophils 7.9 thou/uL (1.40-6.50); %Basophils 0.5 % (0.0-1.0); %Eosinophils 4.3 % (0.0-10.0); %Lymphocytes 15.6 % (21.0-51.0); %Monocytes 9.3 % (0.0-10.0); %Neutrophils 69.9 % (42.0-75.0); Hematocrit 30.6 % (36.0-47.0); Mean Corpuscular HGB CONC 32.7 g/dL (32.0-36.0); Mean Corpuscular Hemoglobin 27.5 pg (27.0-31.0); Mean Corpuscular Volume 84.1 fl (78.0-98.0); Mean Platelet Volume 9.7 fL (7.4-10.4); Platelet Count 274 10x3/uL (130-400); Red Blood Cell (RBC) Count 3.64 mill/uL (4.20-5.40); White Blood Cell (WBC) Count 11.3 10x3/uL (4.8-10.8)
[2023-05-07 15:22] LABS: ALT (SGPT) Less than 7 U/L (8-55); AST (SGOT) 10 U/L (5-34); Albumin 3.4 g/dL (3.4-4.8); Alkaline Phosphatase 56 U/L (40-110); Anion Gap 11 mmol/L (10-20); BUN (Urea Nitrogen) 14 mg/dL (9.8-20.1); Bilirubin, Total 0.6 mg/dL (0.2-1.2); Calc. Creatinine Clearance 0 mL/min (70-130); Calcium 8.9 mg/dL (7.8-10.44); Carbon Dioxide 27 mmol/L (23-31); Chloride 98 mmol/L (98-107); Estimated GFR 66; Globulin 2.9 g/dL (2.4-3.5); Glucose 89 mg/dL (83-110); Potassium 3.6 mmol/L (3.5-5.1); Protein, Total 6.3 g/dL (5.8-8.1); Sodium 132 mmol/L (136-145)
== END 2023-05-07 16:40 | disposition home or self-care (01) ==
LOC: ERS 13:33
DX: N76.0 Acute vaginitis (principal); E11.9 Type 2 diabetes mellitus without complications; I10 Essential (primary) hypertension; E03.9 Hypothyroidism, unspecified; C67.2 Malignant neoplasm of lateral wall of bladder
CPT/HCPCS: 56405; 71260; 78306; 80053; 82565; 85025; 99283; A9503; 36415; Q9967

== ENCOUNTER 2023-07-04 20:21 | Emergency (ER) | payer MEDICARE, BC ==
[2023-07-04 21:24] LABS: Bilirubin Negative (Negative); Blood, Urine Negative (Negative); CAUTI Indications for Culture Alt mental st,lethar; Clarity Clear (Clear); Glucose, Urine (Dipstick) 200 mg/dL (Negative); Ketone, Urine Negative (Negative); Leukocyte 250 Leu/uL (Negative); Nitrite Negative (Negative); Protein, Urine (Dipstick) 30 mg/dL (Neg-Trace); RBC/HPF 0-3 HPF (0-3); Specific Gravity, Urine 1.018 (1.002-1.036); Squamous Epithelial 0-3 HPF (0-3); Urobilinogen Normal mg/dL (Less than 2); WBC/HPF 21-50 HPF (0-3); pH, Urine 5.5 (5.0-9.0)
[2023-07-04 21:25] LABS: Bacteria/HPF 1+ HPF (None Seen)
[2023-07-04 21:27] LABS: Urine Culture Reflex Yes Yes
[2023-07-04 22:09] LABS: ALT (SGPT) 13 U/L (8-55); AST (SGOT) 21 U/L (5-34); Albumin 3.2 g/dL (3.4-4.8); Alkaline Phosphatase 83 U/L (40-110); Anion Gap 13 mmol/L (10-20); BUN (Urea Nitrogen) 17 mg/dL (9.8-20.1); Bilirubin, Total 0.6 mg/dL (0.2-1.2); Calc. Creatinine Clearance 0 mL/min (70-130); Calcium 8.3 mg/dL (7.8-10.44); Carbon Dioxide 29 mmol/L (23-31); Chloride 94 mmol/L (98-107); Estimated GFR 32; Globulin 2.3 g/dL (2.4-3.5); Glucose 199 mg/dL (83-110); Potassium 3.6 mmol/L (3.5-5.1); Protein, Total 5.5 g/dL (5.8-8.1); Sodium 132 mmol/L (136-145)
[2023-07-04 22:11] LABS: Troponin I 0.022 ng/mL (< 0.028)
[2023-07-04] MEDS ORDERED: Sodium Chloride 0.9% 100 ML ONE (22:37)
[2023-07-04] MEDS ORDERED: cefTRIAXone (ROCEPHIN) 1 GM VIAL ONE (22:37)
[2023-07-04 22:44] LABS: #Eosinphils 0.1 thou/uL (0.0-0.7); #Monocytes 0.5 thou/uL (0.11-0.59); #Neutrophils 3.7 thou/uL (1.40-6.50); %Basophils 0.4 % (0.0-1.0); %Eosinophils 1.3 % (0.0-10.0); %Lymphocytes 19.4 % (21.0-51.0); %Monocytes 9.5 % (0.0-10.0); %Neutrophils 68.8 % (42.0-75.0); Hematocrit 32.9 % (36.0-47.0); Hemoglobin 10.6 g/dL (12.0-16.0); Mean Corpuscular HGB CONC 32.2 g/dL (32.0-36.0); Mean Platelet Volume 9.2 fL (7.4-10.4); Platelet Count 219 10x3/uL (130-400); RBC Distribution Width 21.3 % (11.5-14.5); Red Blood Cell (RBC) Count 3.78 mill/uL (4.20-5.40); White Blood Cell (WBC) Count 5.4 10x3/uL (4.8-10.8)
== END 2023-07-05 00:47 | disposition home or self-care (01) ==
LOC: ERS 20:21
DX: N39.0 Urinary tract infection, site not specified (principal); E86.0 Dehydration; I10 Essential (primary) hypertension; E03.9 Hypothyroidism, unspecified; K21.9 Gastro-esophageal reflux disease without esophagitis; Z79.899 Other long term (current) drug therapy; Z79.4 Long term (current) use of insulin
CPT/HCPCS: 36415; 71045; 80053; 81001; 84484; 85025; 87086; 93005; 96365; J0696; J3490

== ENCOUNTER 2024-03-12 08:15 | Outpatient (CLI) | payer MEDICARE, BC ==
[2024-03-12 09:41] LABS: #Basophils 0.03 10x3/uL (0.0-0.2); %Basophils 0.7 % (0.0-1.0); %Eosinophils 2.6 % (0.0-10.0); %Lymphocytes 32.1 % (21.0-51.0); %Monocytes 10.2 % (0.0-10.0); %Neutrophils 54.2 % (42.0-75.0); Hematocrit 42.9 % (36.0-47.0); Hemoglobin 14.6 g/dL (12.0-16.0); Mean Corpuscular Hemoglobin 29.3 pg (27.0-31.0); Mean Platelet Volume 9.9 fL (7.4-10.4); Platelet Count 155 10x3/uL (130-400); RBC Distribution Width 13.7 % (11.5-14.5); Red Blood Cell (RBC) Count 4.99 mill/uL (4.20-5.40)
[2024-03-12 10:02] LABS: Anion Gap 12 mmol/L (10-20); BUN (Urea Nitrogen) 16 mg/dL (9.8-20.1); Calc. Creatinine Clearance 0 mL/min (70-130); Carbon Dioxide 27 mmol/L (23-31); Chloride 105 mmol/L (98-107); Estimated GFR 68; Glucose 179 mg/dL (83-110); Potassium 3.8 mmol/L (3.5-5.1); Sodium 140 mmol/L (136-145)
== END 2024-03-12 08:16 | disposition home or self-care (01) ==
LOC: LABBT 08:15
PROVIDERS: ATTEND Orthopaedic Surgery Hand Surgery
DX: Z01.818 Encounter for other preprocedural examination (principal); M65.4 Radial styloid tenosynovitis [de Quervain]
CPT/HCPCS: 80048; 85025; 93005; 93010

== ENCOUNTER 2024-03-16 09:01 | Day surgery (SDC) | payer MEDICARE, BC ==
[2024-03-12 08:30] VITALS: BMI 35.2
[2024-03-16] MEDS ORDERED: Ondansetron PF 4 MG/2 ML Vial ONE (09:15)
[2024-03-16] MEDS ORDERED: Lidocaine 1% PF 5 ML VIAL ONE (09:15)
[2024-03-16] MEDS ORDERED: PROPOFOL 20 ML ONE (09:15)
[2024-03-16] MEDS ORDERED: Bupivacaine PF 0.5% 30 ML VIAL ONE (09:18)
[2024-03-16] MEDS ORDERED: Bacitracin Zinc Ointment 30 gm TUBE ONE (09:18)
[2024-03-16] MEDS ORDERED: CEFAZOLIN 2 GM VIAL ONE (09:21)
[2024-03-16] MEDS ORDERED: Sodium Chloride 0.9% 100 ML ONE (09:21)
[2024-03-16] MEDS ORDERED: ePHEDrine Sulfate 50 MG/10 ML VIAL ONE (10:15)
[2024-03-16] MEDS ORDERED: fentaNYL 50 mcg/mL 1 mL Vial ONE (10:53)
[2024-03-16] MEDS ORDERED: hydrALAZINE 20 MG/ML VIAL ONE (11:45)
== END 2024-03-16 13:05 | disposition home or self-care (01) ==
LOC: SDC 09:01
PROVIDERS: ATTEND Orthopaedic Surgery Hand Surgery
PROC: 0LN50ZZ Release Right Lower Arm and Wrist Tendon, Open Approach (ICD-10-PCS; principal; 2024-03-16)
DX: M65.4 Radial styloid tenosynovitis [de Quervain] (principal); E78.00 Pure hypercholesterolemia, unspecified; E11.9 Type 2 diabetes mellitus without complications; I10 Essential (primary) hypertension; G47.30 Sleep apnea, unspecified; G56.23 Lesion of ulnar nerve, bilateral upper limbs; M47.812 Spondylosis without myelopathy or radiculopathy, cervical region; M75.41 Impingement syndrome of right shoulder; M75.81 Other shoulder lesions, right shoulder; Z90.710 Acquired absence of both cervix and uterus; Z98.890 Other specified postprocedural states; Z79.899 Other long term (current) drug therapy; Z88.5 Allergy status to narcotic agent
CPT/HCPCS: 25000; 82962; A6223; J0360; J0665; J2405; J2704; J3010; 36416

== ENCOUNTER 2024-03-31 08:04 | Outpatient (CLI) | payer MEDICARE, BC ==
[2024-03-31] MEDS ORDERED: Iopamidol 370 76% 100 ML VIAL ONE (10:52)
== END 2024-03-31 08:05 | disposition home or self-care (01) ==
LOC: CT 08:04
PROVIDERS: ATTEND Radiology Radiation Oncology
DX: C67.2 Malignant neoplasm of lateral wall of bladder (principal); N63.10 Unspecified lump in the right breast, unspecified quadrant; I26.99 Other pulmonary embolism without acute cor pulmonale; K80.20 Calculus of gallbladder without cholecystitis without obstruction; K42.9 Umbilical hernia without obstruction or gangrene; K57.30 Diverticulosis of large intestine without perforation or abscess without bleeding
CPT/HCPCS: 71270; 74178; J1642; Q9967

== ENCOUNTER 2025-02-03 10:08 | Outpatient (CLI) | payer MEDICARE, BC | END 2025-02-03 10:09 | disposition home or self-care (01) | LOC: BICMAMMO 10:08 | PROVIDERS: ATTEND Internal Medicine | DX: Z12.31 Encounter for screening mammogram for malignant neoplasm of breast (principal); Z78.0 Asymptomatic menopausal state; M85.89 Other specified disorders of bone density and structure, multiple sites | CPT/HCPCS: 77080 ==

== ENCOUNTER 2025-04-27 19:48 | Emergency (ER) | payer MEDICARE, BC ==
[2025-04-27 20:13] LABS: #Basophils 0.04 10x3/uL (0.0-0.2); #Eosinophils 0.17 10x3/uL (0.0-0.7); #Monocytes 0.56 10x3/uL (0.11-0.59); #Neutrophils 3.22 10x3/uL (1.40-6.50); %Basophils 0.7 % (0.0-1.0); %Eosinophils 2.8 % (0.0-10.0); %Lymphocytes 33.6 % (21.0-51.0); %Monocytes 9.3 % (0.0-10.0); %Neutrophils 53.4 % (42.0-75.0); Hematocrit 40.7 % (36.0-47.0); Hemoglobin 13.5 g/dL (12.0-16.0); Mean Corpuscular Hemoglobin 28.1 pg (27.0-31.0); Mean Corpuscular Volume 84.6 fL (78.0-98.0); Platelet Count 173 10x3/uL (130-400); Red Blood Cell (RBC) Count 4.81 mill/uL (4.20-5.40); White Blood Cell (WBC) Count 6.02 10x3/uL (4.8-10.8)
[2025-04-27 20:18] LABS: Bacteria/HPF 3+ HPF (None Seen); CAUTI Indications for Culture Acute Hematuria; Glucose, Urine (Dipstick) 70 mg/dL (Negative); Leukocyte 250 Leu/uL (Negative); Protein, Urine (Dipstick) 70 mg/dL (Neg-Trace); RBC/HPF Greater than 50 HPF (0-3); Specific Gravity, Urine 1.007 (1.002-1.036); WBC/HPF Greater than 50 HPF (0-3)
[2025-04-27 20:21] LABS: Urine Culture Reflex Yes Yes
[2025-04-27 20:28] LABS: ALT (SGPT) 10 U/L (Less than 34); AST (SGOT) 19 U/L (11-34); Albumin 4.4 g/dL (3.1-4.5); Alkaline Phosphatase 83 U/L (40-110); Anion Gap 16 mmol/L (10-20); BUN (Urea Nitrogen) 20 mg/dL (9.8-20.1); Bilirubin, Total 0.6 mg/dL (0.3-1.2); Calc. Creatinine Clearance 0 mL/min (70-130); Calcium 10.3 mg/dL (7.8-10.44); Carbon Dioxide 26 mmol/L (23-31); Chloride 99 mmol/L (98-107); Globulin 3.3 g/dL (2.4-3.5); Glucose 159 mg/dL (83-110); Potassium 3.5 mmol/L (3.5-5.1); Sodium 137 mmol/L (136-145)
[2025-04-27 21:26] LABS: INR-International Normal Ratio 1.0; PTT 34.7 sec (22.9-36.1); Prothrombin Time 13.3 sec (12.0-14.7)
[2025-04-27] MEDS ORDERED: cefTRIAXone (ROCEPHIN) 1 GM VIAL ONE (22:50)
== END 2025-04-27 23:20 | disposition home or self-care (01) ==
LOC: ERS 19:48
DX: N30.91 Cystitis, unspecified with hematuria (principal); N32.89 Other specified disorders of bladder; I10 Essential (primary) hypertension; E11.9 Type 2 diabetes mellitus without complications; K21.9 Gastro-esophageal reflux disease without esophagitis; E03.9 Hypothyroidism, unspecified; Z79.890 Hormone replacement therapy; Z79.899 Other long term (current) drug therapy
CPT/HCPCS: 74177; 80053; 81001; 85025; 85610; 85730; 87086; J0696; 36415; 96365; Q9967